=== PATIENT | female | born 1970 | race African-American/Black ===

== ENCOUNTER 2017-10-26 09:50 | Emergency (ER) | payer MEDICARE, MEDICAID | END 2017-10-26 12:15 | disposition home or self-care (01) | LOC: ERS 09:50 | DX: J11.1 Influenza due to unidentified influenza virus with other respiratory manifestations (principal); E05.90 Thyrotoxicosis, unspecified without thyrotoxic crisis or storm; I10 Essential (primary) hypertension; F32.9 Major depressive disorder, single episode, unspecified; F17.210 Nicotine dependence, cigarettes, uncomplicated | CPT/HCPCS: 99283 ==

== ENCOUNTER 2018-08-19 08:23 | Emergency (ER) | payer MEDICAID, MEDICARE ==
--- NOTE | 2018-08-19 09:32 | RAD ---
RIGHT FOOT THREE VIEWS: HISTORY: Injury with pain. FINDINGS: The tarsals appear unremarkable. Tarsal/metatarsal alignment is unremarkable. Mild degenerative changes at the first MTP joint with minimal spurring present. No erosive change. The joint spaces of the MTP joints are normally preserved. There is no fracture or acute osseous les ion. IMPRESSION: Mild degenerative joint disease at the first metatarsophalangeal joint. No acute process identified. POS: [facility]
== END 2018-08-19 09:48 | disposition home or self-care (01) ==
LOC: ERS 08:23
DX: M19.071 Primary osteoarthritis, right ankle and foot (principal); E05.90 Thyrotoxicosis, unspecified without thyrotoxic crisis or storm; I25.2 Old myocardial infarction; K21.9 Gastro-esophageal reflux disease without esophagitis; F32.9 Major depressive disorder, single episode, unspecified; F17.210 Nicotine dependence, cigarettes, uncomplicated; Z79.899 Other long term (current) drug therapy; Z79.82 Long term (current) use of aspirin

== ENCOUNTER 2018-11-05 22:37 | Emergency (ER) | payer MEDICARE, MEDICAID ==
--- NOTE | 2018-11-05 23:08 | RAD ---
PORTABLE AP CHEST X-RAY 11/05/18 HISTORY: Chest pain. COMPARISON: 09/07/16. FINDINGS: The cardiac silhouette is magnified by projection. Pulmonary vasculature is within normal limits. The lungs are clear. the chest is stable compared to the prior exam. IMPRESSION: No acute cardiopulmonary process. POS: [facility]
[2018-11-05 23:17] LABS: #Lymphocytes 0.8 thou/uL (1.20-3.40); #Monocytes 0.3 thou/uL (0.11-0.59); #Neutrophils 4.3 thou/uL (1.40-6.50); %Basophils 0.5 % (0.0-1.0); %Eosinophils 0.5 % (0.0-10.0); %Lymphocytes 14.8 % (21.0-51.0); %Monocytes 5.3 % (0.0-10.0); %Neutrophils 78.9 % (42.0-75.0); Hemoglobin 12.7 g/dL (12.0-16.0); Mean Corpuscular HGB CONC 33.3 g/dL (32.0-36.0); Mean Corpuscular Hemoglobin 31.8 pg (27.0-31.0); Mean Corpuscular Volume 95.6 fL (78.0-98.0); Mean Platelet Volume 10.1 fL (7.4-10.4); Platelet Count 136 thou/uL (130-400); RBC Distribution Width 14.7 % (11.5-14.5); White Blood Cell (WBC) Count 5.5 thou/uL (4.8-10.8)
[2018-11-05 23:32] LABS: ALT (SGPT) 10 U/L (8-55); AST (SGOT) 11 U/L (5-34); Albumin 3.6 g/dL (3.5-5.0); Alkaline Phosphatase 52 U/L (40-150); Anion Gap 13 mmol/L (10-20); BUN (Urea Nitrogen) 25 mg/dL (7.0-18.7); Bilirubin, Total 0.4 mg/dL (0.2-1.2); CK (CPK) 34 U/L (29-168); Calc. Creatinine Clearance 0 mL/min (70-130); Calcium 8.7 mg/dL (7.8-10.44); Carbon Dioxide 18 mmol/L (22-29); Chloride 107 mmol/L (98-107); Estimated GFR-MDRD 34; Globulin 3.5 g/dL (2.4-3.5); Glucose 89 mg/dL (70-105); Potassium 4.7 mmol/L (3.5-5.1); Protein, Total 7.1 g/dL (6.0-8.3); Sodium 133 mmol/L (136-145)
[2018-11-05] MEDS ORDERED: Ketorolac Tromethamine 60 MG/2 ML VIAL ONE (23:33)
[2018-11-06] MEDS ORDERED: Aspirin 325 MG TAB ONE (00:11)
== END 2018-11-06 00:51 | disposition home or self-care (01) ==
LOC: ERS 22:37
DX: S29.012A Strain of muscle and tendon of back wall of thorax, initial encounter (principal); F32.9 Major depressive disorder, single episode, unspecified; I25.2 Old myocardial infarction; E05.90 Thyrotoxicosis, unspecified without thyrotoxic crisis or storm; F17.210 Nicotine dependence, cigarettes, uncomplicated; K21.9 Gastro-esophageal reflux disease without esophagitis; Z79.82 Long term (current) use of aspirin; Z79.891 Long term (current) use of opiate analgesic; Z79.899 Other long term (current) drug therapy; X58.XXXA Exposure to other specified factors, initial encounter
CPT/HCPCS: 71045; 80053; 82550; 84484; 85025; 93005; 96372; J1885

== ENCOUNTER 2020-06-21 01:26 | Emergency (ER) | payer MEDICARE, MEDICAID ==
[2020-06-21] MEDS ORDERED: Adacel (T-DAP) 0.5 ML SYRINGE ONE ×2 (01:38→01:42)
[2020-06-21] MEDS ORDERED: Lidocaine 1% (PF) 30 ML VIAL ONE (01:38)
== END 2020-06-21 02:17 | disposition home or self-care (01) ==
LOC: ERS 01:26
DX: S01.111A Laceration without foreign body of right eyelid and periocular area, initial encounter (principal); I10 Essential (primary) hypertension; E03.9 Hypothyroidism, unspecified; K21.9 Gastro-esophageal reflux disease without esophagitis; I25.2 Old myocardial infarction; F32.9 Major depressive disorder, single episode, unspecified; Z23 Encounter for immunization; F17.210 Nicotine dependence, cigarettes, uncomplicated; Z79.82 Long term (current) use of aspirin; Y04.2XXA Assault by strike against or bumped into by another person, initial encounter
CPT/HCPCS: 12013; 90471; 90715; J2001

== ENCOUNTER 2021-08-02 17:21 | Inpatient (IN) | payer MEDICARE, MEDICAID ==
[2021-08-02 18:17] LABS: #Lymphocytes 1.2 thou/uL (1.20-3.40); #Monocytes 0.9 thou/uL (0.11-0.59); #Neutrophils 3.9 thou/uL (1.40-6.50); %Basophils 0.8 % (0.0-1.0); %Eosinophils 0.6 % (0.0-10.0); %Lymphocytes 20.5 % (21.0-51.0); %Monocytes 14.4 % (0.0-10.0); %Neutrophils 63.8 % (42.0-75.0); Hemoglobin 4.1 g/dL (12.0-16.0); Mean Corpuscular HGB CONC 36.7 g/dL (32.0-36.0); Mean Corpuscular Hemoglobin 33.6 pg (27.0-31.0); Mean Corpuscular Volume 91.5 fL (78.0-98.0); Mean Platelet Volume 9.5 fL (7.4-10.4); Platelet Count 174 thou/uL (130-400); RBC Distribution Width 10.8 % (11.5-14.5); Red Blood Cell (RBC) Count 1.21 mill/uL (4.20-5.40); White Blood Cell (WBC) Count 6.1 thou/uL (4.8-10.8)
[2021-08-02 18:20] LABS: ALT (SGPT) Less than 7 U/L (8-55); AST (SGOT) 8 U/L (5-34); Albumin 3.7 g/dL (3.5-5.0); Alkaline Phosphatase 56 U/L (40-110); Anion Gap 13 mmol/L (10-20); BUN (Urea Nitrogen) 44 mg/dL (7.0-18.7); Bilirubin, Total 0.4 mg/dL (0.2-1.2); Calc. Creatinine Clearance 0 mL/min (70-130); Calcium 8.9 mg/dL (7.8-10.44); Carbon Dioxide 18 mmol/L (22-29); Chloride 109 mmol/L (98-107); Globulin 3.9 g/dL (2.4-3.5); Glucose 119 mg/dL (70-105); Potassium 4.4 mmol/L (3.5-5.1); Protein, Total 7.6 g/dL (6.0-8.3); Sodium 136 mmol/L (136-145)
[2021-08-02 18:34] LABS: MDiff Complete? YES; Platelet Morphology Comment Appears Adequate; Polychromasia SLIGHT = 2-3 cells (100X) (0-2/hpf); Reflex for Review?? YES
[2021-08-02 19:07] LABS: Pregnancy Test - Urine (BHCG) Negative (Negative); Pregu Control Background? CLEAR/WHITE (CLR/WHITE); Pregu Control Bar Appear? YES (CONTROL BAR); Specific Gravity 1.013 (1.002-1.036)
[2021-08-02 19:08] LABS: INR-International Normal Ratio 1.1; PTT 29.4 sec (22.9-36.1); Prothrombin Time 14.7 sec (12.0-14.7)
[2021-08-02 19:09] LABS: Bacteria/HPF 4+ HPF (None Seen); Bilirubin Negative (Negative); Blood, Urine 1+ (Negative); Clarity Extra Turbid (Clear); Glucose, Urine (Dipstick) Normal (Negative); Ketone, Urine Negative (Negative); Leukocyte 500 Leu/uL (Negative); Nitrite Negative (Negative); Protein, Urine (Dipstick) 100 mg/dL (Neg-Trace); Renal Epithelial 0-3 HPF (None Seen); Specific Gravity, Urine 1.013 (1.002-1.036); Urobilinogen Normal mg/dL (Less than 2); WBC/HPF Greater than 50 HPF (0-3); pH, Urine 5.5 (5.0-9.0)
[2021-08-02 19:15] LABS: Iron 216 ug/dL (50-170); Iron Binding Capacity, Total 225 mcg/dL (265-497)
[2021-08-02] MEDS ORDERED: Acetaminophen 325 MG TAB PO PRN (23:15)
[2021-08-02] MEDS ORDERED: Bisacodyl 5 MG TAB PO PRN (23:15)
[2021-08-02] MEDS ORDERED: Ondansetron PF 4 MG/2 ML Vial IVP PRN (23:15)
[2021-08-02] MEDS ORDERED: Guaifenesin DM 100-10/5 ML UDCUP PO PRN (23:15)
[2021-08-02] MEDS ORDERED: Senokot S 8.6-50 MG TAB PO PRN (23:15)
[2021-08-02] MEDS ORDERED: Sodium Chloride 0.9% (PF) 10 ML VIAL FS PRN (23:30)
[2021-08-02] MEDS ORDERED: Pantoprazole 40 MG VIAL IVP SCH (23:30)
[2021-08-03 00:04] VITALS: BMI 35.5
[2021-08-03] MEDS: Nicotine 21 MG PATCH TD SCH (00:35)
[2021-08-03 02:12] LABS: Hemoglobin 7.3 g/dL (12.0-16.0)
[2021-08-03] MEDS: Sodium Chloride 0.9% 1,000 ML IV SCH ×2 (02:29→15:47)
[2021-08-03] MEDS: cefTRIAXone\\ROCEPHIN 2 GM in Sodium Chloride 0.9% 100 ML IVPB SCH (02:29)
[2021-08-03 06:08] LABS: #Eosinphils 0.1 thou/uL (0.0-0.7); #Lymphocytes 1.6 thou/uL (1.20-3.40); #Monocytes 0.5 thou/uL (0.11-0.59); #Neutrophils 2.9 thou/uL (1.40-6.50); %Basophils 0.1 % (0.0-1.0); %Eosinophils 1.1 % (0.0-10.0); %Lymphocytes 31.2 % (21.0-51.0); %Monocytes 10.2 % (0.0-10.0); %Neutrophils 57.5 % (42.0-75.0); Hemoglobin 6.8 g/dL (12.0-16.0); Mean Corpuscular HGB CONC 34.6 g/dL (32.0-36.0); Mean Corpuscular Hemoglobin 30.6 pg (27.0-31.0); Mean Corpuscular Volume 88.5 fL (78.0-98.0); Platelet Count 141 thou/uL (130-400); RBC Distribution Width 13.4 % (11.5-14.5); Red Blood Cell (RBC) Count 2.24 mill/uL (4.20-5.40)
[2021-08-03 06:37] LABS: ALT (SGPT) 13 U/L (8-55); AST (SGOT) 13 U/L (5-34); Albumin 3.4 g/dL (3.5-5.0); Alkaline Phosphatase 60 U/L (40-110); Anion Gap 15 mmol/L (10-20); BUN (Urea Nitrogen) 40 mg/dL (7.0-18.7); Bilirubin, Total 0.4 mg/dL (0.2-1.2); Calc. Creatinine Clearance 31 mL/min (70-130); Calcium 8.3 mg/dL (7.8-10.44); Carbon Dioxide 16 mmol/L (22-29); Chloride 112 mmol/L (98-107); Globulin 3.7 g/dL (2.4-3.5); Glucose 122 mg/dL (70-105); Potassium 4.1 mmol/L (3.5-5.1); Protein, Total 7.1 g/dL (6.0-8.3); Sodium 139 mmol/L (136-145)
[2021-08-03] MEDS: Propranolol 40 MG TAB PO SCH ×2 (09:17→20:25)
[2021-08-03] MEDS: Methimazole 10 MG TAB PO SCH (09:17)
[2021-08-03] MEDS: Pantoprazole 40 MG VIAL IVP SCH ×2 (09:17→20:30)
[2021-08-03 17:03] LABS: SARS-CoV-2 PCR by NAA Not Detected (NotDetected)
[2021-08-03] MEDS ORDERED: Thiamine 100 MG TAB PO SCH (19:45)
[2021-08-03] MEDS ORDERED: EPOETIN ALFA-EPBX (ESRD) 10,000 UNIT/ML VIAL SC SCH (20:00)
[2021-08-03 21:51] LABS: Creatinine, Urine 41.99 mg/dL (47-110)
[2021-08-04] MEDS: Nicotine 21 MG PATCH TD SCH (00:38)
[2021-08-04] MEDS: cefTRIAXone\\ROCEPHIN 2 GM in Sodium Chloride 0.9% 100 ML IVPB SCH (01:30)
[2021-08-04] MEDS ORDERED: Labetalol HCl 100 MG/20 ML VIAL SLOW IVP SCH (03:48)
[2021-08-04] MEDS ORDERED: Albuterol Sulfate 1.25 MG/3 ML NEB NEB PRN (04:07)
[2021-08-04] MEDS ORDERED: Methimazole 10 MG TAB PO SCH (04:30)
[2021-08-04 05:20] LABS: #Lymphocytes 1.3 thou/uL (1.20-3.40); #Monocytes 0.6 thou/uL (0.11-0.59); #Neutrophils 4.7 thou/uL (1.40-6.50); %Basophils 0.3 % (0.0-1.0); %Eosinophils 0.6 % (0.0-10.0); %Lymphocytes 18.9 % (21.0-51.0); %Neutrophils 71.3 % (42.0-75.0); Hemoglobin 8.2 g/dL (12.0-16.0); Mean Corpuscular HGB CONC 33.8 g/dL (32.0-36.0); Mean Corpuscular Hemoglobin 29.5 pg (27.0-31.0); Mean Corpuscular Volume 87.3 fL (78.0-98.0); Mean Platelet Volume 10.2 fL (7.4-10.4); Platelet Count 148 thou/uL (130-400); RBC Distribution Width 13.4 % (11.5-14.5); Red Blood Cell (RBC) Count 2.78 mill/uL (4.20-5.40); White Blood Cell (WBC) Count 6.6 thou/uL (4.8-10.8)
[2021-08-04 05:21] LABS: Reticulocyte Count 0.5 % (0.5-1.5)
[2021-08-04 05:43] LABS: Anion Gap 17 mmol/L (10-20); BUN (Urea Nitrogen) 33 mg/dL (7.0-18.7); Calc. Creatinine Clearance 34 mL/min (70-130); Calcium 8.7 mg/dL (7.8-10.44); Carbon Dioxide 15 mmol/L (22-29); Chloride 114 mmol/L (98-107); Glucose 102 mg/dL (70-105); Magnesium 1.8 mg/dL (1.6-2.6); Phosphorus 3.4 mg/dL (2.3-4.7); Potassium 4.6 mmol/L (3.5-5.1); Sodium 141 mmol/L (136-145)
[2021-08-04] MEDS: Propranolol 40 MG TAB PO SCH ×2 (08:33→21:51)
[2021-08-04] MEDS ORDERED: Sodium Bicarbonate Tab 325 MG TAB PO SCH (09:00)
[2021-08-04] MEDS ORDERED: PROPOFOL 200 MG/20 ML VIAL ONE (12:28)
[2021-08-04] MEDS ORDERED: Lidocaine 1% PF 5 ML VIAL ONE (12:28)
[2021-08-04] MEDS: Thiamine 100 MG TAB PO SCH (14:23)
[2021-08-04] MEDS: Folic Acid 1 MG TAB PO SCH (14:23)
[2021-08-04] MEDS: Pantoprazole 40 MG VIAL IVP SCH ×2 (14:23→21:51)
[2021-08-04] MEDS: Methimazole 10 MG TAB PO SCH (14:23)
[2021-08-04] MEDS: Sodium Bicarbonate Tab 325 MG TAB PO SCH ×2 (14:23→21:51)
[2021-08-04] MEDS: Multivitamin W/ Minerals 1 TAB PO SCH (14:24)
[2021-08-04 16:10] LABS: Free T4 (Free Thyroxine) 0.88 ng/dL (0.70-1.48)
[2021-08-04] MEDS ORDERED: Lorazepam 2 MG/ML VIAL SLOW IVP SCH (21:00)
[2021-08-04] MEDS: GoLYTELY 4,000 ml Bottle PO SCH ×2 (21:51→22:17)
[2021-08-05] MEDS: Nicotine 21 MG PATCH TD SCH (00:47)
[2021-08-05] MEDS: cefTRIAXone\\ROCEPHIN 2 GM in Sodium Chloride 0.9% 100 ML IVPB SCH (00:47)
[2021-08-05] MEDS: Sodium Bicarbonate Tab 325 MG TAB PO SCH ×3 (08:20→21:38)
[2021-08-05] MEDS: Multivitamin W/ Minerals 1 TAB PO SCH (08:20)
[2021-08-05] MEDS: Folic Acid 1 MG TAB PO SCH (08:20)
[2021-08-05] MEDS: Pantoprazole 40 MG VIAL IVP SCH ×2 (08:20→21:38)
[2021-08-05] MEDS: Methimazole 10 MG TAB PO SCH (08:20)
[2021-08-05] MEDS: Thiamine 100 MG TAB PO SCH (08:20)
[2021-08-05] MEDS: Propranolol 40 MG TAB PO SCH ×2 (08:20→21:38)
[2021-08-05 09:34] LABS: Anion Gap 16 mmol/L (10-20); BUN (Urea Nitrogen) 32 mg/dL (7.0-18.7); Calc. Creatinine Clearance 34 mL/min (70-130); Calcium 9.2 mg/dL (7.8-10.44); Carbon Dioxide 17 mmol/L (22-29); Chloride 112 mmol/L (98-107); Glucose 97 mg/dL (70-105); Potassium 4.4 mmol/L (3.5-5.1); Sodium 141 mmol/L (136-145)
[2021-08-05] MEDS ORDERED: Lidocaine 1% PF 5 ML VIAL ONE (11:54)
[2021-08-05] MEDS ORDERED: PROPOFOL 200 MG/20 ML VIAL ONE (11:54)
[2021-08-05] MEDS: Cefdinir 300 MG CAP PO SCH (21:37)
[2021-08-06] MEDS: Nicotine 21 MG PATCH TD SCH (00:58)
[2021-08-06 08:17] VITALS: BP 123/58; TEMP 98.9
[2021-08-06] MEDS: Multivitamin W/ Minerals 1 TAB PO SCH (10:00)
[2021-08-06] MEDS: Propranolol 40 MG TAB PO SCH (10:00)
[2021-08-06] MEDS: Cefdinir 300 MG CAP PO SCH (10:00)
[2021-08-06] MEDS: Thiamine 100 MG TAB PO SCH (10:00)
[2021-08-06] MEDS: Pantoprazole 40 MG VIAL IVP SCH (10:00)
[2021-08-06] MEDS: Folic Acid 1 MG TAB PO SCH (10:00)
[2021-08-06] MEDS: Sodium Bicarbonate Tab 325 MG TAB PO SCH (10:00)
[2021-08-06] MEDS: Methimazole 10 MG TAB PO SCH (10:54)
== END 2021-08-06 13:15 | disposition home or self-care (01) | DRG 683 ==
LOC: ERS 17:21 → 2NO 20:46
PROVIDERS: ADMIT Internal Medicine; ATTEND Internal Medicine
PROC: 30233N1 Transfusion of Nonautologous Red Blood Cells into Peripheral Vein, Percutaneous Approach (ICD-10-PCS; 2021-08-02)
PROC: 0DB98ZX Excision of Duodenum, Via Natural or Artificial Opening Endoscopic, Diagnostic (ICD-10-PCS; principal; 2021-08-04)
PROC: 0DB68ZX Excision of Stomach, Via Natural or Artificial Opening Endoscopic, Diagnostic (ICD-10-PCS; 2021-08-04)
PROC: 0DBH8ZX Excision of Cecum, Via Natural or Artificial Opening Endoscopic, Diagnostic (ICD-10-PCS; 2021-08-05)
PROC: 0DBC8ZX Excision of Ileocecal Valve, Via Natural or Artificial Opening Endoscopic, Diagnostic (ICD-10-PCS; 2021-08-05)
DX: N17.9 Acute kidney failure, unspecified (principal); N39.0 Urinary tract infection, site not specified; E87.2 Acidosis; Z16.11 Resistance to penicillins; E05.90 Thyrotoxicosis, unspecified without thyrotoxic crisis or storm; F31.9 Bipolar disorder, unspecified; F41.9 Anxiety disorder, unspecified; F17.210 Nicotine dependence, cigarettes, uncomplicated; I12.9 Hypertensive chronic kidney disease with stage 1 through stage 4 chronic kidney disease, or unspecified chronic kidney disease; K21.9 Gastro-esophageal reflux disease without esophagitis; E66.9 Obesity, unspecified; D63.1 Anemia in chronic kidney disease; I25.10 Atherosclerotic heart disease of native coronary artery without angina pectoris; K44.9 Diaphragmatic hernia without obstruction or gangrene; F10.10 Alcohol abuse, uncomplicated; B96.20 Unspecified Escherichia coli [E. coli] as the cause of diseases classified elsewhere; K63.5 Polyp of colon; E88.09 Other disorders of plasma-protein metabolism, not elsewhere classified; K29.70 Gastritis, unspecified, without bleeding; N18.30 Chronic kidney disease, stage 3 unspecified; E53.8 Deficiency of other specified B group vitamins; Z20.822 Contact with and (suspected) exposure to COVID-19; Z88.8 Allergy status to other drugs, medicaments and biological substances; Z79.82 Long term (current) use of aspirin; Z79.899 Other long term (current) drug therapy; I25.2 Old myocardial infarction; Z90.49 Acquired absence of other specified parts of digestive tract; Z71.6 Tobacco abuse counseling; Z71.41 Alcohol abuse counseling and surveillance of alcoholic
CPT/HCPCS: 36415; 36430; 71045; 76770; 80048; 80053; 81003; 81015; 81025; 82274; 82306; 82570; 82607; 82728; 82746; 83540; 83550; 83735; 83880; 83970; 84100; 84156; 84439; 84443; 84481; 84484; 85014; 85018; 85025; 85046; 85060; 85610; 85730; 86850; 86900; 86901; 87040; 87077; 87086; 87186; 88305; 88342; 93005; 93306; 94640; 94760; C9113; J0696; J2704; J3490; J7050; P9016; Q5105; U0003; U0005

== ENCOUNTER 2023-05-02 07:58 | Emergency (ER) | payer OTHER | END 2023-05-02 08:52 | disposition home or self-care (01) | LOC: ERS 07:58 | DX: M25.531 Pain in right wrist (principal); I10 Essential (primary) hypertension; E03.9 Hypothyroidism, unspecified; K21.9 Gastro-esophageal reflux disease without esophagitis; F17.210 Nicotine dependence, cigarettes, uncomplicated; Z79.82 Long term (current) use of aspirin ==

== ENCOUNTER 2023-11-08 19:56 | Emergency (ER) | payer MEDICAID, OTHER ==
[2023-11-08 21:21] LABS: #Basophils 0.1 thou/uL (0.0-0.2); #Eosinphils 0.2 thou/uL (0.0-0.7); #Monocytes 0.5 thou/uL (0.11-0.59); #Neutrophils 6.1 thou/uL (1.40-6.50); %Basophils 0.7 % (0.0-1.0); %Eosinophils 2.2 % (0.0-10.0); %Lymphocytes 20.4 % (21.0-51.0); %Monocytes 5.2 % (0.0-10.0); %Neutrophils 70.7 % (42.0-75.0); Hematocrit 39.1 % (36.0-47.0); Mean Corpuscular HGB CONC 30.7 g/dL (32.0-36.0); Mean Corpuscular Hemoglobin 31.3 pg (27.0-31.0); Mean Corpuscular Volume 101.8 fl (78.0-98.0); Mean Platelet Volume 11.4 fL (7.4-10.4); Platelet Count 150 10x3/uL (130-400); RBC Distribution Width 15.4 % (11.5-14.5); Red Blood Cell (RBC) Count 3.84 mill/uL (4.20-5.40); White Blood Cell (WBC) Count 8.7 10x3/uL (4.8-10.8)
[2023-11-08 21:55] LABS: ALT (SGPT) 11 U/L (8-55); AST (SGOT) 20 U/L (5-34); Albumin 3.8 g/dL (3.5-5.0); Alkaline Phosphatase 80 U/L (40-110); Anion Gap 16 mmol/L (10-20); BUN (Urea Nitrogen) 39 mg/dL (9.8-20.1); Bilirubin, Total 0.2 mg/dL (0.2-1.2); Calc. Creatinine Clearance 0 mL/min (70-130); Calcium 8.5 mg/dL (7.8-10.44); Carbon Dioxide 18 mmol/L (22-29); Chloride 111 mmol/L (98-107); Estimated GFR 10; Globulin 4.3 g/dL (2.4-3.5); Glucose 131 mg/dL (70-105); Lipase 17 U/L (8-78); Potassium 4.9 mmol/L (3.5-5.1); Protein, Total 8.1 g/dL (6.0-8.3); Sodium 140 mmol/L (136-145)
[2023-11-08 22:30] LABS: Bacteria/HPF None Seen HPF (None Seen); Bilirubin Negative (Negative); Blood, Urine Negative (Negative); CAUTI Indications for Culture Pelvic or flank pain; Clarity Clear (Clear); Glucose, Urine (Dipstick) Normal (Negative); Ketone, Urine Negative (Negative); Leukocyte Negative Leu/uL (Negative); Nitrite Negative (Negative); Protein, Urine (Dipstick) 100 mg/dL (Neg-Trace); RBC/HPF 0-3 HPF (0-3); Specific Gravity, Urine 1.011 (1.002-1.036); Squamous Epithelial 0-3 HPF (0-3); Urobilinogen Normal mg/dL (Less than 2); WBC/HPF 0-3 HPF (0-3); pH, Urine 6.5 (5.0-9.0)
[2023-11-08 22:31] LABS: Urine Culture Reflex No No
[2023-11-08 23:29] LABS: Prothrombin Time 13.6 sec (12.0-14.7)
[2023-11-09] MEDS ORDERED: Acetaminophen 500 MG TAB ONE (00:36)
== END 2023-11-09 00:49 | disposition home or self-care (01) ==
LOC: ERS 19:56
DX: R10.11 Right upper quadrant pain (principal); F17.210 Nicotine dependence, cigarettes, uncomplicated; I12.0 Hypertensive chronic kidney disease with stage 5 chronic kidney disease or end stage renal disease; N18.6 End stage renal disease; Z99.2 Dependence on renal dialysis
CPT/HCPCS: 36415; 80053; 81001; 83605; 83690; 85025; 85610; 85730; 99284

== ENCOUNTER 2024-08-31 14:05 | Outpatient (CLI) | payer OTHER | END 2024-08-31 14:06 | disposition home or self-care (01) | PROVIDERS: ATTEND Family Medicine | DX: R26.2 Difficulty in walking, not elsewhere classified (principal) ==

== ENCOUNTER 2024-11-30 13:04 | Emergency (ER) | payer OTHER, SELFPAY ==
[2024-11-30 14:11] LABS: #Basophils 0.05 10x3/uL (0.0-0.2); %Basophils 0.6 % (0.0-1.0); %Eosinophils 2.2 % (0.0-10.0); %Lymphocytes 17.3 % (21.0-51.0); %Monocytes 5.4 % (0.0-10.0); %Neutrophils 72.5 % (42.0-75.0); Hematocrit 38.4 % (36.0-47.0); Hemoglobin 12.1 g/dL (12.0-16.0); Mean Corpuscular HGB CONC 31.5 g/dL (32.0-36.0); Mean Corpuscular Hemoglobin 30.9 pg (27.0-31.0); Mean Corpuscular Volume 98.2 fL (78.0-98.0); Mean Platelet Volume 11.1 fL (7.4-10.4); Platelet Count 167 10x3/uL (130-400); RBC Distribution Width 15.3 % (11.5-14.5); Red Blood Cell (RBC) Count 3.91 mill/uL (4.20-5.40)
[2024-11-30 14:35] LABS: CRP,High Sensitivity (Inhouse) 1.49 mg/dL (< or = 0.5); Uric Acid 10.2 mg/dL (2.5-6.2)
[2024-11-30] MEDS ORDERED: predniSONE 20 MG TAB ONE (15:30)
[2024-11-30] MEDS ORDERED: Morphine 2 MG/ML VIAL ONE (15:30)
[2024-11-30 15:35] LABS: ALT (SGPT) 7 U/L (Less than 34); AST (SGOT) 12 U/L (11-34); Albumin 3.4 g/dL (3.1-4.5); Alkaline Phosphatase 53 U/L (40-110); Anion Gap 15 mmol/L (10-20); BUN (Urea Nitrogen) 46 mg/dL (9.8-20.1); Bilirubin, Total 0.2 mg/dL (0.3-1.2); Calc. Creatinine Clearance 0 mL/min (70-130); Carbon Dioxide 19 mmol/L (22-29); Chloride 115 mmol/L (98-107); Estimated GFR 8; Globulin 4.1 g/dL (2.4-3.5); Glucose 83 mg/dL (70-105); Potassium 4.5 mmol/L (3.5-5.1); Protein, Total 7.5 g/dL (6.0-8.3); Sodium 144 mmol/L (136-145)
[2024-11-30] MEDS ORDERED: Colchicine 0.6 MG TAB PO SCH (16:15)
== END 2024-11-30 16:35 | disposition home or self-care (01) ==
LOC: ERS 13:04
DX: M10.9 Gout, unspecified (principal); I10 Essential (primary) hypertension; I25.2 Old myocardial infarction; K21.9 Gastro-esophageal reflux disease without esophagitis; Z79.899 Other long term (current) drug therapy
CPT/HCPCS: 36415; 80053; 84550; 85025; 86141; 96372; 99283; J2272; J7512